=== PATIENT | male | born 1975 | race Two or more races ===

== ENCOUNTER 2018-10-09 22:56 | Emergency (ER) | payer OTHER ==
[~2018-10-09] VITALS: Ht 167.6 cm; Wt 79.4 kg
[2018-10-09 23:00] VITALS: BP 154/91
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
[2018-10-09] MEDS ORDERED: TDAP [DIPH/PERTUSSIS/TET] 0.5 ML VIAL IM ONE ×2 (23:19→23:30)
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
--- NOTE | 2018-10-09 23:44 | NUR ---
Patient discharged to [facility] in stable condition. Written and verbal after care instructions given. [employer] verbalizes understanding of instruction. [employer] TO TAKE PT OUT. PT IS OK TO BOOK BY .
--- NOTE | 2018-10-10 00:04 | NUR ---
NO PALMIRA GEIGER ARRIVED AND PT LEFT IN HANDCUFFS.
== END 2018-10-10 00:16 ==
LOC: ER 23:00
DX: S01.01XA Laceration without foreign body of scalp, initial encounter (principal); X58.XXXA Exposure to other specified factors, initial encounter; Y93.89 Activity, other specified; Y92.89 Other specified places as the place of occurrence of the external cause; Y99.8 Other external cause status
CPT/HCPCS: 90715